=== PATIENT | male | born 1985 | race American Indian/Alaskan Native ===

== ENCOUNTER 2017-07-07 12:09 | Outpatient (CLI) | payer OTHER ==
[2017-07-07] MEDS ORDERED: NACL ONE (12:46)
--- NOTE | 2017-07-07 15:34 | Cat Scan Report ---
FINAL REPORT PROCEDURE: CT NECK W CON TECHNIQUE: Computerized axial tomography of the soft tissue neck was performed following the IV injection of iodinated nonionic contrast. DLP 450.61 mGy-cm. HISTORY: Cystic lesion in midline. COMPARISON: No prior studies are available for comparison. FINDINGS: Skull and scalp: Normal. Paranasal sinuses: Normal. Nasopharynx: Normal . Oral cavity: Normal . Epiglottis/vallecula: Normal . Larynx/pyriform sinuses: Normal . Thyroid gland: Normal . Lymph nodes: A few scattered subcentimeter lymph nodes throughout the neck. 15 x 9 mm millimeter lymph node just to the left of a slightly complex cystic lesion. Salivary glands: Normal . Upper thorax: Mildly prominent anterior mediastinal lymph nodes. Right paratracheal lymph node. Other: 2.2 by 1.1 by 1.4 cm low-attenuation lesion just to the right of the midline at/slightly below the level of the hyoid bone. This has mild peripheral enhancement and subtle enhancing septations in its superior aspect. This slightly displaces the digastric muscle laterally without definite fat plane between this lesion and the digastric muscle. IMPRESSION: Cystic appearing lesion, has mild peripheral enhancement and subtle enhancing septations just to the right of the midline at/just below the level of the hyoid. This displaces the adjacent digastric muscle laterally without definite fat plane between lesion and muscle. Considering patient's age and location, consider this may represent a thyroglossal duct cyst. Consider correlating clinically if there is concern for superimposed acute process such as infection. There is mild surrounding mildly enlarged adenopathy and small mediastinal lymph nodes. Also consider this could represent a necrotic lymph node, or less likely underlying neoplastic etiology. Of note normal thyroid gland is identified.
== END 2017-07-07 12:10 | disposition home or self-care (01) ==
LOC: CT 12:09
PROVIDERS: ATTEND Family Medicine
DX: R59.9 Enlarged lymph nodes, unspecified (principal)
CPT/HCPCS: 70491; Q9967